=== PATIENT | male | born 1985 | race Caucasian/White ===

== ENCOUNTER 2019-03-02 23:56 | Emergency (ER) | payer OTHER, SELFPAY ==
[2019-03-03 00:01] VITALS: BP 125/82; PULSE 69; RESP 18; TEMP 36.4; O2SAT 98
--- NOTE | 2019-03-03 00:39 | W.ED.GENAD ---
Discharge Plan Disposition Patient Disposition: HOME Condition: Stable Discharge Details Chief Complaint: DentalOral Clinical Impression: Dental infection Primary Care Provider: Micky Kamara ED Provider: Lilia Tipton Home Meds and New Rx's Prescriptions: New clindamycin HCl 150 mg capsule 450 mg PO TID 7 Days Qty: 63 RF: 0 Continued baclofen 10 MG tablet 5 - 10 mg PO tid prn 10 Days Qty: 30 RF: 0 topiramate [Topamax] 100 MG tablet 100 mg PO DAILY RF: 0 lamotrigine [Lamictal] 100 MG tablet 100 mg PO DAILY RF: 0 escitalopram oxalate [Lexapro] 10 MG tablet 10 mg PO DAILY RF: 0 naproxen sodium [Aleve] 220 MG capsule 220 mg PO PRN PRNRF: 0 ibuprofen 800 MG tablet 800 mg PO TID PRN PRNQty: 30 RF: 0 meclizine [Antivert] 25 MG tablet 25 mg PO TID PRN PRNRF: 0 Discharge Instructions Instructions: Dental Caries (ED), Toothache (ED) Additional Instructions: Call your dentist on Monday to schedule a follow-up appointment for reevaluation. Take the antibiotics until finished. Drink plenty of fluids and avoid hard chewy foods. Return to the emergency department if you develop any worsening or new concerning symptoms. Discharge Data Discharge Date/Time-TO BE ENTERED AT DEPARTURE: 03/03/19 00:51 Discharge Physician: Lilia Tipton Medical Decision Making 33-year-old male presents with left upper dental pain today. Patient states he broke the tooth a while back, but started to hurt today. Denies fever. Poor dentition and multiple missing teeth throughout. Extensive dental caries. Tenderness palpation teeth #9, 10 and 11 without abscess noted. Patient has an allergy to penicillin. Will give a dose of clindamycin as well as prescription. He is advised to follow-up with his dentist this week and to return here with any concerns. Medical Records Medical records reviewed: Yes I reviewed the patient's medical records. HPI General Mode of arrival: ambulatory. Date/Time Provider Initiated Documentation: 03/03/19 00:28. Limitations to Documentation: no limitations. Information obtained by: patient. HPI Narrative: Patient is a 33-year-old male who presents with left upper dental pain that started tonight. Patient states he broke his left upper tooth a while ago and states it hurts from time to time, but hurt worse tonight. He denies any new injury. He has had multiple teeth pulled in the past. He denies any recent antibiotics. He denies fever. Related Data Home Medications Medication Instructions Recorded Confirmed escitalopram oxalate [Lexapro] 10 mg PO DAILY 09/26/12 03/07/17 lamotrigine [Lamictal] 100 mg PO DAILY 09/26/12 03/07/17 topiramate [Topamax] 100 mg PO DAILY 09/26/12 03/07/17 ibuprofen 800 mg PO TID PRN PRN #30 tablet 02/24/13 03/07/17 naproxen sodium [Aleve] 220 mg PO PRN PRN 02/24/13 03/07/17 meclizine [Antivert] 25 mg PO TID PRN PRN 03/07/17 03/07/17 baclofen 5 - 10 mg PO tid prn 10 Days #30 09/04/17 tab clindamycin HCl 450 mg PO TID 7 Days #63 cap 03/03/19 Previous Rx's Medication Instructions Recorded ibuprofen 800 mg PO TID PRN PRN #30 tablet 02/24/13 baclofen 5 - 10 mg PO tid prn 10 Days #30 09/04/17 tab clindamycin HCl 450 mg PO TID 7 Days #63 cap 03/03/19 Allergies Allergy/AdvReac Type Severity Reaction Status Date / Time penicillin V [Penicillin V] Allergy Intermediate Skin Rash Unverified 03/03/19 00:04 bupropion HCl AdvReac Severe Seizure Unverified 03/03/19 00:04 [From Wellbutrin] General Stated Complaint: DentalOral RUDOLPH: 4 Review of Systems Review of Systems All systems reviewed & are unremarkable except as noted in HPI and below Constitutional Reports as per HPI, Denies chills and Denies fever(s) Eyes Denies blurry vision ENT Reports dental pain, Denies dizziness, Denies sore throat and Denies throat swelling Cardiovascular Denies chest pain and Denies dyspnea Respiratory Denies cough and Denies dyspnea Gastrointestinal Denies abdominal pain, Denies diarrhea and Denies vomiting Genitourinary Denies hematuria and Denies dysuria Musculoskeletal Denies back pain and Denies numbness Integumentary/Breasts Denies lesions and Denies rash Neurologic Denies dizziness, Denies focal weakness and Denies numbness Allergic/Immunologic Denies throat swelling [facility] Medical History Anxiety (Chronic) Bipolar affective disorder (Acute) Insomnia (Acute) Surgical History Neck mass (Acute) excision S/p bilateral myringotomy with tube placement (Acute) Social History Smoking/Tobacco Use Status: Current every day Drug use: Never Do you feel safe at home: Yes Do you feel safe in your relationship?: Yes Exam Const General: cooperative, healthy appearing and no acute distress HENMT Head: normal to inspection Ears: hearing grossly normal bilaterally and external ears normal General nose exam: external nose normal Mouth: oral mucosae normal Teeth image: 1. Poor dentition throughout, but area of tenderness with surrounding minimal erythema noted to #9, 10 and 11. Multiple missing teeth throughout. No abscess noted. Eyes General: appearance normal, both eyes and all related structures Neck Neck: normal visual inspection Resp Effort & Inspection: normal respiratory effort and able to speak in complete sentences Cardio Rate: regular rate Skin General skin exam: no rashes or lesions noted Neuro General: alert, awake and oriented x3 Motor: muscle tone normal throughout Extrem General: normal to inspection and full ROM Psych Appearance: grossly normal Affect: normal affect Course Vital Signs Temperature 97.5 F L 03/03/19 00:01 Pulse 69 03/03/19 00:01 Respiratory Rate 18 03/03/19 00:01 Blood Pressure 125/82 03/03/19 00:01 Pulse Oximetry 98 03/03/19 00:01 Temperature 97.5 F L 03/03/19 00:01 Temperature Source Temporal Artery Scan 03/03/19 00:01 Pulse 69 03/03/19 00:01 Respiratory Rate 18 03/03/19 00:01 Respiratory Effort Non-Labored 03/03/19 00:04 Blood Pressure 125/82 03/03/19 00:01 Blood Pressure Position Sitting 03/03/19 00:01 Pulse Oximetry 98 03/03/19 00:01 Oxygen Delivery Method Room Air 03/03/19 00:01 Oxygen Flow Rate 0 03/03/19 00:01 Pain Level 8 03/03/19 00:06
[2019-03-03] MEDS: Clindamycin 150 MG CAP 450 MG PO (00:45)
== END 2019-03-03 00:51 | disposition home or self-care (01) ==
PROVIDERS: Emergency Provider Physician Assistant; PCP Emergency Medicine
DX: R68.84 Jaw pain (principal); K04.7 Periapical abscess without sinus
CPT/HCPCS: 99283

== ENCOUNTER 2020-02-24 13:36 | Outpatient (CLI) | payer OTHER, SELFPAY ==
[2020-02-26 21:32] LABS: SARS-CoV-2 RNA Undetected (Undetected); SARS-CoV-2 Specimen Source Nasopharynx
== END 2020-02-24 13:56 ==
PROVIDERS: PCP Emergency Medicine; Visit Provider Nurse Practitioner Family
DX: B34.9 Viral infection, unspecified (principal)
CPT/HCPCS: U0003

== ENCOUNTER 2020-10-19 10:49 | Emergency (ER) | payer OTHER, SELFPAY ==
[2020-10-19 11:15] VITALS: BP 115/71; PULSE 86; RESP 18; TEMP 36.5; O2SAT 97
--- NOTE | 2020-10-19 11:30 | DI.RAD_ITS ---
EXAM: XR FOOT RT COMPLETE CLINICAL HISTORY: Injury, R/O fracture. TECHNIQUE: 2D digital imaging was performed. COMPARISON: No exams were available for comparison FINDINGS: There is a nondisplaced oblique fracture in the proximal half of the proximal phalanx of the 5th toe. No other fractures identified. No radiopaque foreign body. No osseous lesions IMPRESSION: Nondisplaced fracture of the proximal phalanx of the 5th toe. DATA REPOSITORY: RADIATION DOSE DELIVERED:
--- NOTE | 2020-10-19 12:18 | ED.GENADUL_ITS ---
Discharge Plan Disposition Patient Disposition: HOME Condition: Stable Discharge Details Clinical Impression: Closed fracture of fifth toe of right foot Primary Care Provider: Micky Kamara ED Provider: Vanessa Driscoll Home Meds and New Rx's Prescriptions: Continued topiramate [Topamax] 100 MG tablet 100 mg PO DAILY RF: 0 lamotrigine [Lamictal] 100 MG tablet 100 mg PO DAILY RF: 0 escitalopram oxalate [Lexapro] 10 MG tablet 10 mg PO DAILY RF: 0 naproxen sodium [Aleve] 220 MG capsule 220 mg PO PRN PRNRF: 0 ibuprofen 800 MG tablet 800 mg PO TID PRN PRNQty: 30 RF: 0 meclizine [Antivert] 25 MG tablet 25 mg PO TID PRN PRNRF: 0 Discharge Instructions Instructions: Toe Fracture (ED) Additional Instructions: Rest ice compression elevation. Please take Tylenol or Ibuprofen with food every 4-6 hours as needed for pain and swelling. Please follow-up with orthopedics in 1 to 2 weeks if continued pain. Will be placed on a care management list for Ortho follow-up. Wear postop shoe as needed for comfort Stand Alone Forms: Work Release Referrals: Rashawn Parker MD [ [facility] STAFF PHYSICIAN] - Discharge Data Discharge Date/Time-TO BE ENTERED AT DEPARTURE: 10/19/20 12:48 Medical Decision Making 35-year-old male presents to the ER with chief complaint of right fifth toe contusion and tenderness after dropping a large piece of wood on his foot yesterday. He is ambulatory with a limping gait. Did take 800 mg ibuprofen prior to arrival. X-rays ordered rule out fracture. EXAM: XR FOOT RT COMPLETE CLINICAL HISTORY: Injury, R/O fracture. TECHNIQUE: 2D digital imaging was performed. COMPARISON: No exams were available for comparison FINDINGS: There is a nondisplaced oblique fracture in the proximal half of the proximal phalanx of the 5th toe. No other fractures identified. No radiopaque foreign body. No osseous lesions IMPRESSION: Nondisplaced fracture of the proximal phalanx of the 5th toe. Patient placed in a postop shoe and mateus taped instructed on RICE procedures and follow-up with Ortho verbalized understanding. HPI General Mode of arrival: ambulatory . Date/Time Provider Initiated Documentation: 10/19/20 11:07 . Limitations to Documentation: no limitations . Information obtained by: patient . HPI Narrative: 35-year-old male presents to the ER with chief complaint of right fifth toe contusion and tenderness after dropping a large piece of wood on his foot yesterday. He is ambulatory with a limping gait. Did take 800 mg ibuprofen prior to arrival. Related Data Home Medications Medication Instructions Recorded Confirmed escitalopram oxalate [Lexapro] 10 mg PO DAILY 09/26/12 10/19/20 lamotrigine [Lamictal] 100 mg PO DAILY 09/26/12 10/19/20 topiramate [Topamax] 100 mg PO DAILY 09/26/12 10/19/20 ibuprofen 800 mg PO TID PRN PRN #30 tab 02/24/13 10/19/20 naproxen sodium [Aleve] 220 mg PO PRN PRN 02/24/13 04/30/20 meclizine [Antivert] 25 mg PO TID PRN PRN 03/07/17 10/19/20 Previous Rx's Medication Instructions Recorded ibuprofen 800 mg PO TID PRN PRN #30 tab 02/24/13 Allergies Allergy/AdvReac Type Severity Reaction Status Date / Time penicillin V [Penicillin V] Allergy Intermediate Skin Rash Unverified 10/27/20 13:28 bupropion HCl AdvReac Severe Seizure Unverified 10/27/20 13:28 [From Wellbutrin] General Stated Complaint: Orthopedic RUDOLPH: 4 Review of Systems All systems reviewed & are unremarkable except as noted in HPI and below Musculoskeletal Musculoskeletal: Reports arthralgias and Reports joint swelling Comments: Right 5th toe [facility] Medical History (Updated 10/19/20 @ 12:37 by Vanessa Driscoll) Anxiety Bipolar affective disorder Encounter for annual physical exam Insomnia Rectal pain Surgical History Neck mass excision S/p bilateral myringotomy with tube placement Social History Smoking/Tobacco Use Status: Current every day Tobacco Type: cigarettes Quit status: considering quitting Smoking risk assessment performed?: Yes Alcohol Intake: current Alcohol Intake frequency: holidays/special occasions only Drug use: Never Substance use type: does not use Current gender identity: male Do you feel safe at home: Yes Do you feel safe in your relationship?: Yes Exam Const General: cooperative, healthy appearing, comfortable, well developed and well groomed Nutritional Appearance: average body habitus Orientation: alert, awake and oriented x3 Extrem Ankle/foot/toe images: 1. Contusion, swelling, tenderness, no obvious deformity Course Vital Signs Vital signs: Vital Signs Temperature 36.5 C 10/19/20 11:15 Pulse 86 10/19/20 11:15 Respiratory Rate 18 10/19/20 11:15 Blood Pressure 115/71 10/19/20 11:15 Pulse Oximetry 97 10/19/20 11:15 Temperature 36.5 C 10/19/20 11:15 Temperature Source Temporal Artery Scan 10/19/20 11:15 Pulse 86 10/19/20 11:15 Respiratory Rate 18 10/19/20 11:15 Respiratory Effort Non-Labored 10/19/20 11:21 Blood Pressure 115/71 10/19/20 11:15 Blood Pressure Position Sitting 10/19/20 11:15 Pulse Oximetry 97 10/19/20 11:15 Oxygen Delivery Method Room Air 10/19/20 11:15 Oxygen Flow Rate 0 10/19/20 11:15 Pain Level 0 10/19/20 11:15 Comment 10/19/20 11:15
== END 2020-10-19 12:48 | disposition home or self-care (01) ==
PROVIDERS: Emergency Provider Registered Nurse Emergency; PCP Emergency Medicine
DX: S92.514A Nondisplaced fracture of proximal phalanx of right lesser toe(s), initial encounter for closed fracture (principal); W20.8XXA Other cause of strike by thrown, projected or falling object, initial encounter
CPT/HCPCS: 28510; 73630

== ENCOUNTER 2020-10-27 14:28 | Outpatient (CLI) | payer OTHER, SELFPAY ==
--- NOTE | 2020-10-27 13:45 | DI.RAD_ITS ---
EXAM: XR TOE RT FIFTH CLINICAL HISTORY: follow up. TECHNIQUE: 2D digital imaging was performed. COMPARISON: CR XR FOOT RT COMPLETE from 10/19/2020 FINDINGS: BONES: There has been no change in alignment of the nondisplaced fracture involving the proximal pha lanx of the right 5th toe. No new fracture or dislocation is seen. No bony destructive lesion is se en. JOINTS: No dislocation present. SOFT TISSUE: Mild soft tissue swelling adjacent to the 5th toe. IMPRESSION: Stable fracture of the proximal phalanx of the right 5th toe. DATA REPOSITORY: RADIATION DOSE DELIVERED:
== END 2020-10-27 14:29 | disposition home or self-care (01) ==
LOC: DIORS 14:28
PROVIDERS: PCP Emergency Medicine; Referring Provider Emergency Medicine; Visit Provider Physician Assistant Surgical
DX: S92.514D Nondisplaced fracture of proximal phalanx of right lesser toe(s), subsequent encounter for fracture with routine healing (principal)
CPT/HCPCS: 73660

== ENCOUNTER 2020-11-17 10:25 | Outpatient (CLI) | payer OTHER, SELFPAY ==
--- NOTE | 2020-11-17 10:15 | DI.RAD_ITS ---
Exam(s) XR FOOT RT COMPLETE EXAM: XR FOOT RT COMPLETE INDICATION: f/u fracture. COMPARISON: No exams were available for comparison TECHNIQUE: 2D digital imaging was performed. FINDINGS: Has been no change in the alignment of the fracture of the proximal phalanx of the 4th toe. No new a bnormalities are seen. DATA REPOSITORY: RADIATION DOSE DELIVERED:
== END 2020-11-17 10:26 | disposition home or self-care (01) ==
LOC: DIORS 10:26
PROVIDERS: PCP Emergency Medicine; Referring Provider Emergency Medicine; Visit Provider Physician Assistant Surgical
DX: S92.514D Nondisplaced fracture of proximal phalanx of right lesser toe(s), subsequent encounter for fracture with routine healing (principal)
CPT/HCPCS: 73630

== ENCOUNTER 2022-08-16 02:39 | Outpatient (CLI) | payer SELFPAY ==
[2022-08-16 12:52] LABS: Calculated LDL 93 mg/dL (<100); Cholesterol 149 mg/dL (<200); HDL Cholesterol 41 mg/dL (40-60); Triglyceride 75 mg/dL (<150)
[2022-08-16 12:54] LABS: Hemoglobin A1C 4.9 % (<5.7)
== END 2022-08-16 02:40 | disposition home or self-care (01) ==
PROVIDERS: PCP Nurse Practitioner Family; Visit Provider Nurse Practitioner Family
DX: F31.89 Other bipolar disorder (principal); Z51.81 Encounter for therapeutic drug level monitoring; Z79.899 Other long term (current) drug therapy; Z13.1 Encounter for screening for diabetes mellitus; Z13.220 Encounter for screening for lipoid disorders
CPT/HCPCS: 36415; 80061; 80175; 83036

== ENCOUNTER 2022-12-13 14:17 | Emergency (ER) | payer OTHER, SELFPAY ==
[2022-12-13 14:23] VITALS: BP 123/62; PULSE 76; RESP 18; TEMP 37.2; O2SAT 99
--- NOTE | 2022-12-13 15:51 | DI.RAD_ITS ---
Exam(s) XR FINGER LT LITTLE EXAM: XR FINGER LT LITTLE CLINICAL HISTORY: football injury. TECHNIQUE: 2D digital imaging was performed. COMPARISON: No exams were available for comparison FINDINGS: 3 views No evidence of acute fracture nor dislocation. Mild soft tissue swelling noted. Cortical thickening is noted along the middle phalanx but there does not appear to be a fracture. No radiopaque foreign body IMPRESSION: No acute fracture evident. DATA REPOSITORY: RADIATION DOSE DELIVERED:
--- NOTE | 2022-12-13 16:43 | ED.GENADUL_ITS ---
Discharge Plan Disposition Patient Disposition: Home Condition: Stable Discharge Details Clinical Impression: Finger sprain Primary Care Provider: Ramos Cochran ED Provider: Alin Soriano Home Meds and New Rx's Prescriptions: Continued escitalopram oxalate [Lexapro] 10 mg tablet 10 mg PO DAILY Qty: 90 3RF lamotrigine [Lamictal] 100 mg tablet 100 mg PO DAILY Qty: 90 3RF topiramate [Topamax] 100 mg tablet 100 mg PO DAILY Qty: 90 3RF ibuprofen 800 MG tablet 800 mg PO TID PRN PRNQty: 30 0RF trazodone 50 mg tablet 25 mg PO QHS PRN (Reason: sleep) Rx Instructions: take 0.5-1 tab po HS prn sleeping Discontinued cyclobenzaprine 10 mg tablet 10 mg PO TID PRN (Reason: muscle spasm) Qty: 20 0RF Patient Comments: patient states this was a temporary medication and is no longer taking it, Discharge Instructions Instructions: Finger Sprain (ED) Additional Instructions: Please keep wearing the finger splint and take [id number] medications as needed. If you have any new or significant worsening of symptoms please feel free to return the emergency department otherwise follow-up with orthopedic clinic or your primary care provider if not improving in the next 1 to 2 weeks. Referrals: [facility] [Provider Group] (If not improving please call the office for arrangement of follow-up appointment) Discharge Data Discharge Date/Time-TO BE ENTERED AT DEPARTURE: 12/13/22 17:40 Medical Decision Making Patient presenting to the emergency department for chief complaint of left little finger injury that occurred 3 days ago. Patient states blunt injury while catching a football. Patient denies any other injury or trauma. Physical exam shows tenderness to the proximal phalanx of the left fifth digit. No other tenderness is noted cap refill and sensation is intact distal to injury. Patient does have appropriate flexion and extension but of note patient states dorsal pain to the fifth digit with any flexion type motion. Radiological imaging was performed and shows no acute findings. Suspect ligamentous injury but doubt full tear. Will place patient in finger splint and have patient contact orthopedic office if not improving in the next 1 to 2 weeks. Conservative management otherwise discussed. After discussion of diagnosis and plan of care patient has no further needs, questions, or concerns and states clear understanding to return to the emergency department for any worsening symptoms. This documentation was generated using [employer] dictation system, please disregard any oddities of phrase or misspellings. Imaging Data Radiologic Study: Imaging: X-Ray Radiologist's impression: Exam(s) XR FINGER LT LITTLE EXAM: XR FINGER LT LITTLE CLINICAL HISTORY: football injury. TECHNIQUE: 2D digital imaging was performed. COMPARISON: No exams were available for comparison FINDINGS: 3 views No evidence of acute fracture nor dislocation. Mild soft tissue swelling noted. Cortical thickening is noted along the middle phalanx but there does not appear to be a fracture. No radiopaque foreign body HPI General Mode of arrival: ambulatory . Date/Time Provider Initiated Documentation: 12/13/22 15:01 . Limitations to Documentation: no limitations . Information obtained by: patient and RN notes reviewed . History of Present Illness 37 year old M presents to the emergency department with the chief complaint of Left little finger injury, described as moderate, and is localized to the left and upper extremity. Patient reports no radiation. Patient started experiencing this day(s) (3) and it has been constant. Immobilization improves symptom(s), Movement worsens symptoms . Patient notes no other symptoms.. Patient did receive the following treatments prior to arrival, splint Related Data Home Medications Medication Instructions Recorded Confirmed ibuprofen 800 mg tablet 800 mg PO TID PRN PRN #30 tabs 02/24/13 12/13/22 escitalopram oxalate 10 mg tablet 10 mg PO DAILY #90 tabs 08/18/22 12/13/22 (Lexapro) lamotrigine 100 mg tablet 100 mg PO DAILY #90 tabs 08/18/22 12/13/22 (Lamictal) topiramate 100 mg tablet (Topamax) 100 mg PO DAILY #90 tabs 08/18/22 12/13/22 trazodone 50 mg tablet 25 mg PO QHS PRN sleep 12/13/22 12/13/22 Previous Rx's Medication Instructions Recorded ibuprofen 800 mg tablet 800 mg PO TID PRN PRN #30 tabs 02/24/13 escitalopram oxalate 10 mg tablet 10 mg PO DAILY #90 tabs 08/18/22 (Lexapro) lamotrigine 100 mg tablet 100 mg PO DAILY #90 tabs 08/18/22 (Lamictal) topiramate 100 mg tablet (Topamax) 100 mg PO DAILY #90 tabs 08/18/22 Allergies Allergy/AdvReac Type Severity Reaction Status Date / Time penicillin V [Penicillin V] Allergy Intermediate Skin Rash Verified 12/13/22 15:57 bupropion HCl AdvReac Severe Seizure Verified 12/13/22 15:57 [From Wellbutrin] General Stated Complaint: Orthopedic RUDOLPH: 4 Review of Systems Narrative: 6 systems reviewed and unremarkable except what is marked below. Musculoskeletal Musculoskeletal: Reports as per HPI, Reports arthralgias, Reports joint swelling and Reports limited range of motion Integumentary/Breasts Skin/Breast: Denies wounds PFSH All Active Problems Finger sprain (Acute) Insomnia (Acute) Bipolar affective disorder (Acute) Encounter for annual physical exam (Acute) Rectal pain (Acute) External hemorrhoids Medical History Anal fissure Anxiety Closed fracture of fifth toe of right foot Surgical History Neck mass excision S/p bilateral myringotomy with tube placement Family History Mother No problems noted. Social History Smoking/Tobacco Use Status: Current every day Tobacco Type: cigarettes Tobacco: How many years used: 22 Quit status: considering quitting Second Hand Exposure: Yes Smoking risk assessment performed?: Yes Alcohol Intake: current Alcohol Intake frequency: holidays/special occasions only Alcohol type: beer Drug use: Never Substance use type: does not use Caregiver/Support person: No Household members: significant other and children Communication Needs: None Pets and animals: Yes Pets and animals: cat(s) Sexually active: Yes Do you think of yourself as: straight/heterosexual Current gender identity: male What is your relationship status?: living with partner How often do you talk on the phone with friends or family?: once per week How often do you get together with friends or relatives?: twice per week How often do you attend advent or episcopalian services?: decline to answer Do you belong to any clubs or organized social groups?: no Panel score (0-1 are the most socially isolated patients): 2 What type of physical activity do you participate in: none Frequency: does not exercise Laverne/Jewish: No preference Special laverne needs: No Seatbelt use: always Helmet use: Yes Helmet use: sometimes Drive intox or ride w/intox warehouse delivery driver: No Do you feel safe at home: Yes Do you feel safe in your relationship?: Yes Exam Const General: cooperative, no acute distress and not ill appearing Orientation: alert, awake and oriented x3 HENMT Mouth: moist mucous membranes Resp Effort & Inspection: normal respiratory effort, able to speak in complete sentences and no respiratory distress Skin General skin exam: no rashes or lesions noted Neuro General: patient alert, patient awake, patient oriented x3, moves all extremities and no focal motor deficits Sensory Exam: no sensory deficits noted Extrem General: normal exam except as noted Left upper extremity: hand Details: neuromotor exam normal, neurosensory exam normal, tendon exam normal, tenderness Location: of the 5th digit Location: at the MCP joint and at the proximal phalanx, vascular exam Details: normal capillary refill and abnormal ROM of finger Details: pain with active ROM Location: of the 5th digit and pain with passive ROM Location: of the 5th digit; able to flex and extend; no ecchymosis Course Vital Signs Vital signs: Vital Signs Temperature 37.2 C 12/13/22 14:23 Pulse 76 12/13/22 14:23 Respiratory Rate 18 12/13/22 14:23 Blood Pressure 123/62 12/13/22 14:23 Pulse Oximetry 99 12/13/22 14:23 Temperature 37.2 C 12/13/22 14:23 Temperature Source Tympanic 12/13/22 14:23 Pulse 76 12/13/22 14:23 Respiratory Rate 18 12/13/22 14:23 Respiratory Effort Normal 12/13/22 14:26 Blood Pressure 123/62 12/13/22 14:23 Pulse Oximetry 99 12/13/22 14:23 Oxygen Delivery Method Room Air 12/13/22 14:23 Oxygen Flow Rate 0 12/13/22 14:23 Pain Level 2 12/13/22 14:23
[2022-12-13 17:41] VITALS: BP 117/78; PULSE 64; RESP 16; O2SAT 100
== END 2022-12-13 17:40 | disposition home or self-care (01) ==
PROVIDERS: Emergency Provider Nurse Practitioner Family; PCP Nurse Practitioner Family
DX: S63.617A Unspecified sprain of left little finger, initial encounter (principal); W21.01XA Struck by football, initial encounter
CPT/HCPCS: 99283; 73140

== ENCOUNTER 2023-06-11 12:36 | Emergency (ER) | payer OTHER, SELFPAY ==
[2023-06-11 12:39] VITALS: BP 129/70; PULSE 90; RESP 16; TEMP 36.5; O2SAT 100
[2023-06-11 12:43] VITALS: BP 129/70; PULSE 90; RESP 16; TEMP 36.5; O2SAT 100
--- NOTE | 2023-06-11 13:36 | ED.GENADUL_ITS ---
Discharge Plan Disposition Patient Disposition: Home Discharge Details Clinical Impression: Dental infection Primary Care Provider: Ramos Cochran ED Provider: Tiburcio Cook Home Meds and New Rx's Prescriptions: New clindamycin HCl 150 mg capsule 450 mg PO TID 14 Days Qty: 126 0RF Continued escitalopram oxalate [Lexapro] 10 mg tablet 10 mg PO DAILY Qty: 90 3RF lamotrigine [Lamictal] 100 mg tablet 100 mg PO DAILY Qty: 90 3RF topiramate [Topamax] 100 mg tablet 100 mg PO DAILY Qty: 90 3RF trazodone 50 mg tablet 25 mg PO QHS PRN (Reason: sleep) Qty: 60 2RF Rx Instructions: take 0.5-1 tab po HS prn sleeping ibuprofen 800 MG tablet 800 mg PO TID PRN PRNQty: 30 0RF Discharge Instructions Instructions: Dental Abscess (ED) Additional Instructions: You were seen in the emergency department for your dental infection. I have prescribed clindamycin sent to [facility] in [place]. Please take this as directed for the next 2 weeks. Please use therapeutic dosing of Tylenol (acetamenophen) & Advil (ibuprofen) in an alternating fashion as follows: Take 1000mg of Tylenol every 6 hours without missing doses- that is 4 times per day. Detention in between the Tylenol dosings, take 400-600mg of Advil also on a 6 hour schedule, that is also 4 times per day. The daily maximum dosing of Tylenol is 4000mg, and the daily maximum dosing of Advil is 2400mg. This is safe to do for weeks. Please note that some common cold medications & prescription pain medications may contain acetamenophen and you need to read OTC drug labels and factor that in to maximum daily dosings. Use salt water gargles with warm salt water 3 times per day, use topical Anbesol around mealtimes and before bed for pain relief, follow-up with dentist soon as possible for definitive treatment Referrals: Ramos Cochran, DAT[employer]ASE DEVELOPMENT PROJECT MANAGER [Primary Care Provider] - Medical Decision Making This dictation utilizes [id number] dictation software and may contain unedited grammatical errors. 37 y/o M presents to ED today with a chief complaint of dental pain. Onset and characteristics include noticed yesterday, has known dental decay and caries. Patients' medical history: noncontributory. Family and social history: noncontributory. Pertinent exam findings / vital signs include ENT: Nares patent, no circumoral cyanosis, no facial swelling Diffuse dental decay in bilateral lower molars with inflamed gingiva on the left where there are some extensive caries without signs of abscess, uvula midline, no palpable lymphadenopathy, no facial swelling or redness, managing secretions well without issues, painless range of motion of the jaw. Differential / pathologies of concern include dental infection, unlikely abscess. Diagnostic studies of: -none. Interventions of: -outpatient Rx. ED Course/Assessment/Plan: Patient seen with diffuse dental caries with exacerbation of gingival infection next to dental caries. I counseled him on the importance of following up with a dentist and did prescribe Augmentin to cover for dental infection as well as recommend topical Anbesol, therapeutic dosing of Tylenol and ibuprofen other conservative measures like salt water gargles 3 times per day, strict return criteria for any inability to open the jaw, excessive vocal changes or excessive drooling. Findings not consistent with peritonsillar abscess/epiglottitis. Disposition of Dental Infection. Patient verbalized understanding of the plan and return to ED criteria and engaged in shared decision making. Medical Records Medical records reviewed: Yes I reviewed the patient's medical records. HPI General Date/Time Provider Initiated Documentation: 06/11/23 12:42 . HPI Narrative: 37 year-old male presents to ED today by POV/ambulating with a chief complaint of dental pain with onset noted yesterday. Quality described as throbbing, no radiation to hoarseness, vocal changes, trismus, fever, facial swelling, excessive drooling, severely dry mouth. Severity is described as 5-6/10. Palliating factors include nothing specific. Provoking factors include nothing specific. Patient not anticoagulated. Related Data Home Medications Medication Instructions Recorded Confirmed ibuprofen 800 mg tablet 800 mg PO TID PRN PRN #30 tabs 02/24/13 06/11/23 escitalopram oxalate 10 mg tablet 10 mg PO DAILY #90 tabs 08/18/22 06/11/23 (Lexapro) lamotrigine 100 mg tablet 100 mg PO DAILY #90 tabs 08/18/22 06/11/23 (Lamictal) topiramate 100 mg tablet (Topamax) 100 mg PO DAILY #90 tabs 08/18/22 06/11/23 trazodone 50 mg tablet 25 mg (1/2 x 50 mg) PO QHS PRN 02/16/23 06/11/23 sleep #60 tabs clindamycin HCl 150 mg capsule 450 mg (3 x 150 mg) PO TID dental 06/11/23 infection 14 days #126 caps Previous Rx's Medication Instructions Recorded ibuprofen 800 mg tablet 800 mg PO TID PRN PRN #30 tabs 02/24/13 escitalopram oxalate 10 mg tablet 10 mg PO DAILY #90 tabs 08/18/22 (Lexapro) lamotrigine 100 mg tablet 100 mg PO DAILY #90 tabs 08/18/22 (Lamictal) topiramate 100 mg tablet (Topamax) 100 mg PO DAILY #90 tabs 08/18/22 trazodone 50 mg tablet 25 mg (1/2 x 50 mg) PO QHS PRN 02/16/23 sleep #60 tabs clindamycin HCl 150 mg capsule 450 mg (3 x 150 mg) PO TID dental 06/11/23 infection 14 days #126 caps Allergies Allergy/AdvReac Type Severity Reaction Status Date / Time penicillin V [Penicillin V] Allergy Intermediate Skin Rash Verified 06/11/23 12:41 bupropion HCl AdvReac Severe Seizure Verified 06/11/23 12:41 [From Wellbutrin] General Stated Complaint: DentalOral RUDOLPH: 4 Review of Systems All systems reviewed & are unremarkable except as noted in HPI and below PFSH All Active Problems (Updated 06/11/23 @ 13:46 by JOHN Camarillo) Dental infection (Acute) Insomnia (Acute) Bipolar affective disorder (Acute) Encounter for annual physical exam (Acute) Rectal pain (Acute) External hemorrhoids Medical History Anal fissure Anxiety Closed fracture of fifth toe of right foot Surgical History Neck mass excision S/p bilateral myringotomy with tube placement Family History (Updated 01/27/23 @ 14:06 by Moira Carnes NP) Mother No problems noted. Father Multiple sclerosis Agent orange exposure Social History Smoking/Tobacco Use Status: Current every day Tobacco Type: cigarettes Tobacco: How many years used: 22 Quit status: considering quitting Second Hand Exposure: Yes Smoking risk assessment performed?: Yes Alcohol Intake: former Drug use: Never Substance use type: does not use Caregiver/Support person: No Household members: significant other and children Housing: house Communication Needs: None Pets and animals: Yes Pets and animals: cat(s) Sexually active: Yes Do you think of yourself as: straight/heterosexual Current gender identity: male What is your relationship status?: living with partner How often do you talk on the phone with friends or family?: once per week How often do you get together with friends or relatives?: twice per week How often do you attend synagogue or synagogue services?: decline to answer Do you belong to any clubs or organized social groups?: no Panel score (0-1 are the most socially isolated patients): 2 What type of physical activity do you participate in: none Frequency: does not exercise Laverne/Buddhism: No preference Special laverne needs: No Seatbelt use: always Helmet use: Yes Helmet use: sometimes Drive intox or ride w/intox pile driver engineer: No Do you feel safe at home: Yes Do you feel safe in your relationship?: Yes Exam Narrative Exam Narrative: GENERAL APPEARANCE: Well-nourished, non-toxic, awake and alert, atraumatic, no acute distress. SKIN: Warm, pink, dry, intact, without rashes/lesions/ulcerations. HEAD: Normocephalic, atraumatic, normal hair distribution for gender/age. EYES: Pupils PERRLA, EOMs intact without nystagmus, normal conjunctiva, no exudates on lids/lashes. ENT: Nares patent, no circumoral cyanosis, no facial swelling Diffuse dental decay in bilateral lower molars with inflamed gingiva on the left where there are some extensive caries without signs of abscess, uvula midline, no palpable lymphadenopathy, no facial swelling or redness, managing secretions well without issues, painless range of motion of the jaw NECK: Supple, trachea midline, painless cervical ROM. LUNGS/CHEST: Non-labored respirations, normal A/P diameter, symmetrical expansion, no chest wall deformity HEART (CV/PV): No peripheral edema, no JVD. ABDOMEN: Soft, non-distended, no guarding. MSK: Normal ROM, no swelling/deformity to bilateral UEs or LEs, moving all extremities without weakness, no cyanosis, spine midline without tenderness, normal curvature. NEURO: Mental Status AAOx4 - alert to person, place, time, events No facial droop, no forehead involvement. Motor: No focal weakness - strength 5/5 in bilateral UEs and LEs, proximal and distal, symmetric. Sensory: sensation intact to light touch globally. Gait normal: patient ambulated without ataxia into ED room. PSYCH: euthymic, cooperative, pleasant, appropriate speech Course Vital Signs Vital signs: Vital Signs Temperature 36.5 C 06/11/23 12:39 Pulse 90 06/11/23 12:39 Respiratory Rate 16 06/11/23 12:39 Blood Pressure 129/70 06/11/23 12:39 Pulse Oximetry 100 06/11/23 12:39 Temperature 36.5 C 06/11/23 12:43 Temperature Source Temporal Artery Scan 06/11/23 12:43 Pulse 90 06/11/23 12:43 Respiratory Rate 16 06/11/23 12:43 Respiratory Effort Normal, Non-Labored 06/11/23 12:42 Blood Pressure 129/70 06/11/23 12:43 Blood Pressure Position Sitting 06/11/23 12:43 Pulse Oximetry 100 06/11/23 12:43 Oxygen Delivery Method Room Air 06/11/23 12:43 Oxygen Flow Rate 0 06/11/23 12:43
== END 2023-06-11 13:54 | disposition home or self-care (01) ==
PROVIDERS: Emergency Provider Physician Assistant; PCP Nurse Practitioner Family
DX: K08.89 Other specified disorders of teeth and supporting structures (principal)
CPT/HCPCS: 99283; 99284

== ENCOUNTER → 2025-06-17 00:28 | Outpatient (CLI) | payer OTHER, SELFPAY ==
--- NOTE | 2025-06-17 08:00 | DI.RAD_ITS ---
Exam(s) XR FOOT RT COMPLETE EXAM: XR FOOT RT COMPLETE CLINICAL HISTORY: Right foot pain,m79.671. TECHNIQUE: 2D digital imaging was performed of the right foot. Three images were obtained. AP, oblique and lateral views were obtained. COMPARISON: CR XR FOOT RT COMPLETE from 11/17/2020 FINDINGS: BONES: No acute fracture is present. No bony destructive lesion is seen. JOINTS: No dislocation present. The joint spaces are well maintained. SOFT TISSUE: Normal. IMPRESSION: Unremarkable radiographs of the right foot. DATA REPOSITORY: RADIATION DOSE DELIVERED:
--- NOTE | 2025-06-17 08:00 | DI.RAD_ITS ---
Exam(s) XR FOOT LT COMPLETE EXAM: XR FOOT LT COMPLETE CLINICAL HISTORY: Left foot pain,m79.672. TECHNIQUE: 2D digital imaging was performed of the left foot. Three images were obtained. AP, oblique and lateral views were obtained. COMPARISON: No exams were available for comparison FINDINGS: BONES: No acute fracture is present. No bony destructive lesion is seen. JOINTS: No dislocation present. There is mild asymmetric narrowing of the 1st MTP joint. SOFT TISSUE: Normal. IMPRESSION: Mild joint space narrowing of the 1st MTP joint which may reflect osteoarthritis. DATA REPOSITORY: RADIATION DOSE DELIVERED:
== END ==
LOC: DI 00:28
PROVIDERS: PCP Nurse Practitioner Family; Visit Provider Podiatrist
DX: M79.671 Pain in right foot (principal); M79.672 Pain in left foot; M19.072 Primary osteoarthritis, left ankle and foot
CPT/HCPCS: 73630